=== PATIENT | female | born 2000 | race Caucasian/White ===

== ENCOUNTER 2021-04-22 20:06 | Emergency (ER) | payer OTHER ==
[~2021-04-22] VITALS: Ht 162.6 cm; Wt 60.8 kg
[2021-04-22 20:40] VITALS: BP 114/61
[2021-04-22] MEDS ORDERED: CELEXA10 MG PO (20:44)
[2021-04-22] MEDS ORDERED: BUSPIRONE HCL10 MG PO (20:45)
[2021-04-22] MEDS ORDERED: PROMETH-CODEIN 65 ML PO (21:42)
== END 2021-04-22 21:53 | disposition home or self-care (01) ==
LOC: M.ERS 20:06
DX: Z20.822 Contact with and (suspected) exposure to COVID-19 (principal); F32.9 Major depressive disorder, single episode, unspecified; F41.9 Anxiety disorder, unspecified; Z79.899 Other long term (current) drug therapy; Z88.1 Allergy status to other antibiotic agents